=== PATIENT | male | born 2000 | race Caucasian/White ===

== ENCOUNTER 2025-08-03 10:11 | Emergency (ER) | payer OTHER, SELFPAY ==
--- OUTSIDE RECORDS SUMMARY | 2025-08-03 10:14 | XMS_ITS | Clinical Summary ---
Author Organization [facility] Address [address] [place] [id number] Care Team Providers Care Respiratory Coordinator Name Role Phone None, Provider MD Primary Care Provider Unavaila ble Allergies No known active allergies Medications tamsulosin (FLOMAX) 0.4 MG Cap Take 1 capsule (0.4 mg total) by mouth daily. 30 capsule 4 07/27/20 25 Discontinued HYDROcodone-ac etaminophen (NORCO) 5-325 MG tabletIndicati ons:Acute Pain < 3 Day Supply Take 1 tablet by mouth every 6 (six) hours as needed. Indications : Acute Pain < 3 Day Supply 2 tablet 4 07/27/20 25 Discontinued Active Problems Problem Noted Date Diagnosed Date Status post laparoscopic appendectomy 03/11/2021 Encounters Date Type Department Care Team Description 07/27/2025 1:06 PM SOAKER HELPER - 07/27/2025 2:00 PM SOAKER HELPER Emergency [facility] Emergency Services [facility] [place] [address] Kerwin Jennings MD Eye Injury Discharge Disposition: Home or Self Care (Routine Discharge) 07/27/2025 Travel from Last 3 Months Immunizations Immunization Administration Dates Next Due H1N1 Injectable 2009 Influenza 07/09/2009,2008 Menactra 03/08/2017 Meningococcal (Menactra) 03/08/2017 Social History Tobacco Use Types Packs/Day Years Used Date Smoking Tobacco: Never Smokeless Tobacco: Never Tobacco Cessation:Counseling Given: Not Answered Alcohol Use Standard Drinks/Week Comments Yes 0 (1 standard drink = 0.6 oz pur e alcohol) socially AUDIT-C Answer Date Recorded Frequency of Alcohol Consumption Never 03/13/2019 Average Number of Drinks Not on file 019 Frequency of Binge Drinking Not on file 02/19 PHQ-2 Answer Date Recorded Patient Health Questionnaire-2 Score 0 02/18/2025 Sex and Gender Information Value Date Recorded Sex Assigned at Male 02/18/2025 5:56 PM CDT Legal Sex Male 7:58 AM CDT Gender Identity Not on file Sexual Orientation Not on file Last Filed Vital Signs Vital Sign Reading Time Taken Comments Blood Pressure 147/74 07/27/2025 1:13 PM SOAKER HELPER Pulse 82 07/27/2025 1:13 PM SOAKER HELPER Temperature 37.6 C (99.7 F) 07/27/2025 1:13 PM SOAKER HELPER Respiratory Rate 18 07/27/2025 1:13 PM SOAKER HELPER Oxygen Saturation 94% 07/27/2025 1:13 PM SOAKER HELPER Inhaled Oxygen Concentration - - Weight 81.6 kg (180 lb) 07/27/2025 1:13 PM SOAKER HELPER Height 182.9 cm (6') 07/27/2025 1:13 PM SOAKER HELPER Body Mass Index 24.41 07/27/2025 1:13 PM SOAKER HELPER Plan of Treatment Health Maintenance Due Date Last Done Comments Annual Physical 2003 HPV Vaccines (1 - Male 3-dos e series) 2015 Hepatitis C 2018 DTaP, Tdap and Td Vaccines ( 1 - Tdap) 2019 Hepatitis B Vaccines (1 of 3 - 19+ 3-dose series) 2019 COVID-19 Vaccine (1 - 2024-2 6 season) 2025 Influenza Adult (#1) 2025 07/09/2009, 06/11/2009 Meningococcal Vaccine Completed 03/08/2017 , 03/08/2017 PHQ-2 (Physician [place]) Completed 02/18/2025 Hepatitis A Vaccines Aged Out No long er eligible based on patient's age to complete this topic Meningococcal B Vaccine Aged Out No l onger eligible based on patient's age to complete this topic Pneumococcal Vaccine: Pediatrics (0 to 5 Years) and At-Risk Patients (6 to 49 Years) Aged Out No longer eligible b ased on patient's age to complete this topic RSV Immunizations Under 20 Months Aged Out No longer eligible b ased on patient's age to complete this [place] [address] Advance Directives Documents on File Type Date Recorded Patient Insurance Associate Expl anation Advance Directives and Living Will 03/02/2021 12:00 AM ADVANCED DIRECTIVES Care Teams Respiratory Coordinator Relationship Specialty Start Date End Date None, Provider, PCP - General 09/25/18
[2025-08-03 10:23] VITALS: BP 127/64; PULSE 83; RESP 18; TEMP 36.2; O2SAT 100
--- NOTE | 2025-08-03 10:28 | ED.URI ---
HPI - URI/Sore Throat General Chief Complaint: Upper Respiratory Infection Stated Complaint: Upper Respiratory Infection patient presents to the [facility] accompanied by mother with complaints of productive cough, sinus pain, nasal congestion, nasal drainage, and chest wall pain that began about 2 weeks ago. Patient does note that 1 week ago he did feel significantly worse and believed he had a fever and upset stomach with these symptoms as well. Today reports taking Mucinex but no other medications taken for symptoms. No known sick contacts. Denies chills, body aches, abdominal pain, vomiting, diarrhea, dizziness, wheezing, or shortness of breath. Related Data Allergies Allergy/AdvReac Type Severity Reaction Status Date / Time No Known Allergies Allergy Verified 08/03/25 10:16 Review of Systems Constitutional: Constitutional: Reports as per HPI, Denies chills, Denies fatigue, Reports fever(s) and Denies weakness Eyes: Eyes: Reports no additional eye complaints ENT: Reports as per HPI, Denies vertigo, Denies dizziness, Reports nasal congestion and Reports sore throat Cardiovascular: Cardiovascular: Reports no additional cardiovascular complaints Respiratory: Respiratory: Reports as per HPI, Reports chest congestion, Reports cough, Denies dyspnea and Denies wheezing Gastrointestinal: Gastrointestinal: Reports as per HPI, Denies abdominal pain, Denies diarrhea, Reports nausea and Denies vomiting Genitourinary: Genitourinary: Reports no additional male genitourinary complaints Musculoskeletal: Musculoskeletal: Reports as per HPI, Denies back pain and Denies myalgias Integumentary/Breasts: Skin/Breast: Reports as per HPI, Denies erythema, Denies rash and Denies skin ulcer Neurologic: Reports as per HPI, Denies vertigo, Denies dizziness, Reports headache(s) and Denies weakness Psychiatric: Psychiatric: Reports no additional psychiatric complaints Endocrine: Endocrine: Reports no additional endocrine complaints Hematologic/Lymphatic: Hematologic/Lymphatic: Reports no additional hematologic/lymphatic complaints Allergic/Immunologic: Allergic/Immunologic: Reports no additional allergic/immunologic complaints Exam Const: General: healthy appearing and no acute distress Nutritional Appearance: well nourished Orientation/consciousness: patient oriented x3 Limitations: no limitations HENMT: Head: normal to inspection Ears: external ears normal and TM's normal bilaterally Face/Nose/Sinus: Normal external nose present, nares abnormal ( mild erythema and edema noted) and no nasal discharge noted Face and sinus: normal facial exam and sinus tenderness maxillary Mouth: Yes Normal oral and palatal mucosa present, Yes lip normal and Yes moist mucous membranes Throat: posterior oropharynx abnormal ( Minimal erythema noted no edema or exudate) Neck: Neck: normal visual inspection and no lymphadenopathy Chest: Chest palpation & inspection: normal inspection of the chest and tenderness ( minimal) pectoral muscle Resp: Effort & Inspection: normal respiratory effort Auscultation: clear to auscultation bilaterally Cardio: Rate: regular rate Rhythm: regular rhythm Skin: General skin exam: normal color Rashes: no rashes Wounds: no wounds Neuro: General: patient oriented x3 Speech: normal speech Gait exam (Neuro): Normal gait present Psych: Mental Status: mental status grossly normal Affect: normal affect Attitude: cooperative Course Course Level of Care: Express Care Visit Vital Signs Vital signs: Vital Signs Temperature 97.2 F L 08/03/25 10:23 Pulse Rate 83 08/03/25 10:23 Respiratory Rate 18 08/03/25 10:23 Blood Pressure 127/64 08/03/25 10:23 Pulse Oximetry 100 08/03/25 10:23 Oxygen Delivery Room Air 08/03/25 10:23 Temperature 97.2 F L 08/03/25 10:23 Pulse Rate 83 08/03/25 10:23 Respiratory Rate 18 08/03/25 10:23 Blood Pressure 127/64 08/03/25 10:23 Pulse Oximetry 100 08/03/25 10:23 Oxygen Delivery Room Air 08/03/25 10:23 MDM MDM Narrative Medical decision making narrative: 2 weeks of symptoms The patient was evaluated by myself in the express care. History is obtained from patient who is an independent historian and physical exam was performed. Available medical records were reviewed at this time. Exam findings show no acute concerns or changes; patient is non-toxic appearing and is in no distress. Patient is appropriate for outpatient treatment and follow-up. I have evaluated and discussed social determinants of health with the patient that could potentially impact subsequent diagnosis and treatment plans. Differential diagnosis and treatment plan were discussed with the patient. Patient agrees with discussion and after shared medical decision making agrees with plan of care. All questions were answered to the patient's satisfaction. Differential Diagnosis Differential Diagnosis: bronchitis, sinusitis upper respiratory infection, pharyngitis Medical Records I have reviewed the following patient records and this information was taken into consideration when formulating the assessment and plan.: previous labs, previous ER visits, previous hospitalizations and previous clinic visits Discharge Plan Discharge Clinical Impression: Sinusitis Patient Disposition: Home Condition: Stable Instructions: Antibiotic Form, Sinusitis (ED) Additional Instructions: Take the antibiotics as directed for the entire course. Do not miss any doses. What you are taking antibiotics and is recommended to take a probiotic or have yogurt daily to return the good gut bacteria to your system. This can also help with acute diarrhea while taking antibiotics. It can take 24-48 hours for the antibiotics to start to relieve your symptoms continue to take these medications to help with various symptoms: Tylenol or Motrin for pain, headache, or fever Flonase/fluticasone or Nasacort/triamcinolone nasal spray- helps with congestion and nasal drainage. Sudafed/pseudoephedrine helps with sinus pain and congestion. Caution with high blood pressure. Use a humidifier or vaporizer at night. Drink plenty of water. 8-10 glasses per day. Mucinex/guaifenes[place] directed and be sure to take with 8oz of water. Warm compresses over the forehead and cheeks to promote sinus drainage. Return to urgent care or go to the ER for new or worsening symptoms. Follow up with Primary provider if not improved after 1 week. Patient Language: [place] Prescriptions: New amoxicillin 875 mg tablet 875 mg PO Q12H Qty: 20 0RF Follow-up/Referrals: PHYSICIAN,CARPET LOOM FIXER [Primary Care Provider, Internal Medicine] Time of Disposition: 10:33
== END 2025-08-03 10:35 | disposition home or self-care (01) ==
PROVIDERS: Emergency Provider Nurse Practitioner Family
DX: J32.9 Chronic sinusitis, unspecified (principal)
CPT/HCPCS: 99203; G0463